=== PATIENT | male | born 1950 | race Caucasian/White ===

== ENCOUNTER 2022-07-17 09:21 | Outpatient (CLI) | payer MEDICARE, SELFPAY ==
--- NOTE | 2022-07-17 09:38 | XR_ITS ---
WS: [id number] Exam: XR lumbar spine min 4V [id number] Date/Time of Exam: 07/17/2022 9:39 AM Reason For Exam: M54.16 - Radiculopathy, lumbar region No fracture or dislocation. Moderate levoscoliosis. Degenerative vacuum disks noted at L2-3, L3-4, L4 -5 and L5-S1. Spondylosis at all levels. Facet DJD from L3 to S1. XR/XR lumbar spine min 4V [id number] IMPRESSION: 1. No fracture or malalignment noted. 2. Moderately advanced degenerative changes and levoscoliosis.
--- NOTE | 2022-07-17 09:38 | XR_ITS ---
WS: [id number] Exam: XR cervical spine 4-5V [id number] Date/Time of Exam: 07/17/2022 9:39 AM Reason For Exam: M54.12 - Radiculopathy, cervical region No acute fracture or dislocation. Degenerative disc changes and spondylosis from C3 to C7. Facet DJD at all levels. Mild degenerative anterolisthesis of C7 on T1. Mild levoscoliosis of the cervical spin e. The odontoid is intact. Normal paraspinal soft tissues. There is narrowing of the bony neuroforami na on the right at C4-5, C5-6 and C6-7. Mild narrowing of the left C6-7 neural foramina. XR/XR cervical spine 4-5V [id number] IMPRESSION: 1. No acute fracture or malalignment. 2. Moderately advanced degenerative changes as detailed above. 3. Slight levoscoliosis and straightening.
== END 2022-07-17 09:22 | disposition home or self-care (01) ==
PROVIDERS: PCP Nurse Practitioner Family; Visit Provider Anesthesiology Pain Medicine
DX: M54.12 Radiculopathy, cervical region (principal); M54.16 Radiculopathy, lumbar region; M47.896 Other spondylosis, lumbar region; M47.892 Other spondylosis, cervical region
CPT/HCPCS: 72050; 72110

== ENCOUNTER → 2022-07-31 12:29 | Outpatient (BNVA) | payer MEDICARE, SELFPAY | PROVIDERS: PCP Nurse Practitioner Family; Visit Provider Anesthesiology Pain Medicine | DX: M54.12 Radiculopathy, cervical region (principal) | CPT/HCPCS: 62321; J1100 ==

== ENCOUNTER 2022-08-08 12:51 | Outpatient (CLI) | payer MEDICARE, SELFPAY ==
--- NOTE | 2022-08-08 13:00 | MR_ITS ---
WS: [id number] MRI CERVICAL SPINE NONCONTRAST TECHNIQUE: Sagittal T1, T2 and STIR imaging. Axial T2, gradient, and fiesta imaging. CLINICAL INFORMATION: M54.12 - Radiculopathy, cervical region COMPARISON: None. FINDINGS: Straightening of the normal cervical lordosis. Cord signal is normal. Slight anterolisthesis C7 on T1 . Moderate spondylitic changes cervical spine. C2-C3: Disc osteophyte complex with endplate ridging. LEFT pericentral osteophyte protrusion. Slight indentation on the cervical cord with mild central canal stenosis. Mild LEFT foraminal narrowing. Mil d facet arthropathy. C3-C4: Disc osteophyte complex with endplate ridging. Moderate facet arthropathy. Moderate bilateral bony foraminal narrowing RIGHT greater than LEFT. Mild central canal stenosis. C4-C5: Disc osteophyte complex with endplate ridging. Moderate to severe RIGHT and mild LEFT bony for aminal narrowing. Moderate facet arthropathy. Spinal canal is patent. C5-C6: Disc osteophyte complex with endplate ridging. Moderate to severe RIGHT and no significant LEF T foraminal narrowing. Moderate facet arthropathy. Spinal canal is patent. C6-C7: Disc osteophyte complex with mild central canal stenosis. Moderate to severe RIGHT and moderat e LEFT bony foraminal narrowing. Mild facet arthropathy. Mild central canal stenosis. C7-T1: Grade 1 anterolisthesis. Disc osteophyte complex with endplate ridging. Moderate bilateral bon y foraminal narrowing. Shallow disc protrusions in the upper thoracic spine at T1-T2 and T2-T3. Mild RIGHT foraminal narrowi ng at these levels. Visualized brain stem structures: Normal. Prevertebral soft tissues: Normal. MR/MR cervical spin wo con* [id number] IMPRESSION: 1. Straightening of the normal cervical lordosis with moderate spondylitic santiago nges. 2. Mild central canal stenosis C2-C3, C3-C4, C4-C5, C5-C6 and C6-C7. 3. Moderate to severe bony foraminal narrowing worse at RIGHT C3-C4, RIGHT C4- C5, RIGHT C5-C6 and RIGHT greater than LEFT C6-C7. 4. Moderate bilateral C7-T1 bony foraminal narrowing. 5. Cord signal is normal.
--- NOTE | 2022-08-08 13:45 | MR_ITS ---
WS: [id number] MRI LUMBAR SPINE NONCONTRAST TECHNIQUE: Sagittal T1, T2 and STIR imaging. Axial T1 and T2 imaging. CLINICAL INFORMATION: M54.16 - Radiculopathy, lumbar region COMPARISON: None. FINDINGS: Mild lumbar curve. No acute compression. Disc space narrowing worse at L2-L3 and L3-L4 with endplate degenerative changes. Slight retrolisthesis L2 on L3 and L3 on L4. Advanced facet arthropat hy L5-S1 with edema in the LEFT L5 pedicle likely degenerative. Small LEFT facet effusion. L1-L2: Mild disc osteophyte complex with endplate ridging. Moderate central canal stenosis. Impingeme nt subarticular recess bilaterally. Mild facet arthropathy. Mild LEFT foraminal narrowing. L2-L3: Disc osteophyte complex with endplate ridging. Slight retrolisthesis. Moderate to severe centr al canal stenosis. Mild facet arthropathy. Moderate RIGHT foraminal narrowing impinges the exiting RI GHT L2 nerve root. LEFT foramen is patent. L3-L4: Disc osteophyte complex with endplate ridging. Moderate central canal stenosis. Moderate facet arthropathy. Moderate RIGHT and mild LEFT foraminal narrowing. RIGHT foraminal protrusion impinges t he exiting RIGHT L3 nerve root. L4-L5: Disc osteophyte complex with endplate ridging. Moderate to severe central canal stenosis. Mode rate facet arthropathy. Impingement traversing LEFT greater than RIGHT L5 nerve roots. Moderate LEFT greater than RIGHT foraminal narrowing. Slight impingement on the exiting LEFT greater than RIGHT L4 nerve roots. L5-S1: Disc osteophyte complex with endplate ridging. Impingement LEFT S1 nerve root. Advanced LEFT f acet arthropathy with small facet effusion. Mild LEFT foraminal narrowing. Foramen is patent. Partially visualized markedly enlarged prostate with heterogeneous signal. Recommend correlation with PSA. MR/MR lumbar spine wo con* [id number] IMPRESSION: 1. Mild lumbar curve convex LEFT. No acute compression. 2. Advanced disc space narrowing worse at L2-L3 and L3-L4 with slight retrolis thesis. 3. Moderate to severe central canal stenosis L2-L3 and L4-L5. Moderate central canal stenosis L1-L2, and L3-L4. 4. Disc osteophyte complex L5-S1 impinges the LEFT S1 nerve root in the subart icular recess. Mild LEFT L5-S1 foraminal narrowing. 5. Moderate RIGHT L2-L3 foraminal narrowing impinges the exiting RIGHT L2 nerv e root with RIGHT foraminal protrusion. 6. Moderate RIGHT L3-L4 foraminal narrowing. 7. Moderate LEFT greater than RIGHT L4-L5 foraminal narrowing. 8. Advanced facet arthropathy LEFT L5-S1 with degenerative edema. 9. Partially visualized markedly enlarged prostate measuring 5.3 x 7.7 cm susp icious for neoplasia/hyperplasia. Recommend correlation PSA.
== END 2022-08-08 12:52 | disposition home or self-care (01) ==
PROVIDERS: PCP Family Medicine; Visit Provider Anesthesiology Pain Medicine
DX: M54.12 Radiculopathy, cervical region (principal); M54.16 Radiculopathy, lumbar region; M47.817 Spondylosis without myelopathy or radiculopathy, lumbosacral region; M25.78 Osteophyte, vertebrae; M48.061 Spinal stenosis, lumbar region without neurogenic claudication; M48.02 Spinal stenosis, cervical region
CPT/HCPCS: 72141; 72148

== ENCOUNTER → 2022-08-15 11:11 | Outpatient (BNVA) | payer MEDICARE, SELFPAY | PROVIDERS: PCP Nurse Practitioner Family; Visit Provider Anesthesiology Pain Medicine | DX: M48.062 Spinal stenosis, lumbar region with neurogenic claudication (principal); M54.16 Radiculopathy, lumbar region; M54.12 Radiculopathy, cervical region | CPT/HCPCS: 99215 ==

== ENCOUNTER → 2022-08-31 12:54 | Outpatient (BNVA) | payer MEDICARE, SELFPAY | PROVIDERS: PCP Nurse Practitioner Family; Visit Provider Anesthesiology Pain Medicine | DX: M54.16 Radiculopathy, lumbar region (principal) | CPT/HCPCS: 64483; 64484; J1100; J3490 ==

== ENCOUNTER → 2022-09-14 09:29 | Outpatient (BNVA) | payer MEDICARE, SELFPAY | PROVIDERS: PCP Nurse Practitioner Family; Referring Provider Anesthesiology Pain Medicine; Visit Provider Orthopaedic Surgery | DX: M48.062 Spinal stenosis, lumbar region with neurogenic claudication (principal); M47.816 Spondylosis without myelopathy or radiculopathy, lumbar region | CPT/HCPCS: 72120; 99204 ==

== ENCOUNTER → 2022-09-21 09:56 | Outpatient (BNVA) | payer MEDICARE, SELFPAY | PROVIDERS: PCP Nurse Practitioner Family; Visit Provider Anesthesiology Pain Medicine | DX: M48.062 Spinal stenosis, lumbar region with neurogenic claudication (principal); M54.16 Radiculopathy, lumbar region; M54.12 Radiculopathy, cervical region | CPT/HCPCS: 99214 ==

== ENCOUNTER → 2022-09-26 13:53 | Outpatient (BNVA) | payer MEDICARE, SELFPAY | PROVIDERS: PCP Nurse Practitioner Family; Visit Provider Orthopaedic Surgery | DX: M48.062 Spinal stenosis, lumbar region with neurogenic claudication (principal) | CPT/HCPCS: 99214 ==

== ENCOUNTER → 2022-12-19 10:19 | Outpatient (BNVA) | payer MEDICARE, SELFPAY | PROVIDERS: PCP Family Medicine; Visit Provider Anesthesiology Pain Medicine | DX: M48.062 Spinal stenosis, lumbar region with neurogenic claudication (principal); M54.16 Radiculopathy, lumbar region; M54.12 Radiculopathy, cervical region | CPT/HCPCS: 99214 ==